=== PATIENT | male | born 1995 | race African-American/Black ===

== ENCOUNTER 2022-09-02 13:41 | Emergency (ER) | payer OTHER ==
[~2022-09-02] VITALS: Ht 172.7 cm; Wt 68.0 kg
[2022-09-02 14:01] LABS: PLATELET COUNT 278 K/uL (142-355)
[2022-09-02 15:20] VITALS: BP 124/71; TEMP 99.1
== END 2022-09-02 15:20 | disposition home or self-care (01) ==
LOC: ED 13:41
PROVIDERS: Emergency Medicine
DX: K59.09 Other constipation (principal)
CPT/HCPCS: 80053; 80307; 81002; 82150; 83690; 85027; 99283